=== PATIENT | male | born 1960 | race Caucasian/White ===

== ENCOUNTER → 2016-08-22 | Outpatient (CLI) | payer BC ==
[~2016-08-22] MED LIST: ALAVERT10 MG PO; NKHM PO
[2016-08-22 10:42] LABS: BASO % 0.5 % (0.0-1.0); EOS # 0.1 10*3/uL (0.0-0.4); EOS % 2.1 % (1.0-4.0); HEMATOCRIT 45.7 % (42.0-52.0); HEMOGLOBIN 16.6 g/dl (14.0-18.0); LYMPH # 0.6 10*3/uL (1.3-4.4); LYMPH % 9.4 % (27.0-41.0); MEAN CELL VOLUME 92.9 fl (80.0-94.0); MEAN CORPUSCULAR HGB 33.7 pg (27.0-31.0); MEAN CORPUSCULAR HGB CONC 36.3 g/dl (33.0-37.0); MEAN PLATELET VOLUME 10.7 fl (9.6-12.3); MONO # 0.6 10*3/uL (0.1-1.0); MONO % 9.4 % (3.0-9.0); NEUT # 4.8 10*3/uL (2.3-7.9); NEUT % 78.4 % (47.0-73.0); PLATELET COUNT AUTOMATED 165 10*3/uL (130-400); RED BLOOD COUNT 4.92 10*6/uL (4.50-5.90); RED CELL DISTRI WIDTH 13.7 % (0-14.5); WHITE BLOOD COUNT 6.2 10*3/uL (4.8-10.8)
[2016-08-22 11:06] LABS: ALKALINE PHOSPHATASE 79 U/L (45-117); BILIRUBIN, TOTAL 1.1 mg/dl (0.2-1.0); BUN 17 mg/dl (7-24); CARBON DIOXIDE 30 mmol/L (21-32); CHLORIDE 106 mmol/L (98-107); EST GLOM FILT AFRICAN AMERICAN > 60 ml/min; GLUCOSE 92 mg/dL (65-99); LDH 227 U/L (87-241); POTASSIUM 4.4 mmol/L (3.5-5.1); SGOT/AST 18 IU/L (3-35); SGPT/ALT 27 U/L (12-78); SODIUM 145 mmol/L (136-145); TOTAL PROTEIN 6.8 gm/dL (6.4-8.2)
== END | disposition home or self-care (01) ==
LOC: LAB 10:23
PROVIDERS: Internal Medicine Hematology & Oncology
DX: Z51.11 Encounter for antineoplastic chemotherapy (principal); C82.03 Follicular lymphoma grade I, intra-abdominal lymph nodes; C85.89 Other specified types of non-Hodgkin lymphoma, extranodal and solid organ sites

== ENCOUNTER → 2017-02-14 | Outpatient (CLI) | payer BC ==
[2017-02-14 08:06] LABS: BASO % 0.7 % (0.0-1.0); EOS # 0.2 10*3/uL (0.0-0.4); EOS % 3.5 % (1.0-4.0); HEMATOCRIT 44.8 % (42.0-52.0); HEMOGLOBIN 15.7 g/dl (14.0-18.0); LYMPH # 0.8 10*3/uL (1.3-4.4); LYMPH % 14.2 % (27.0-41.0); MEAN CELL VOLUME 95.9 fl (80.0-94.0); MEAN CORPUSCULAR HGB 33.6 pg (27.0-31.0); MEAN PLATELET VOLUME 10.9 fl (9.6-12.3); MONO # 0.6 10*3/uL (0.1-1.0); MONO % 10.8 % (3.0-9.0); NEUT # 4.1 10*3/uL (2.3-7.9); NEUT % 70.5 % (47.0-73.0); PLATELET COUNT AUTOMATED 131 10*3/uL (130-400); RED BLOOD COUNT 4.67 10*6/uL (4.50-5.90); WHITE BLOOD COUNT 5.8 10*3/uL (4.8-10.8)
[2017-02-14 08:37] LABS: ALBUMIN 3.8 gm/dl (3.1-4.5); ALKALINE PHOSPHATASE 78 U/L (45-117); BUN 15 mg/dl (7-24); CHLORIDE 108 mmol/L (98-107); CREATININE 1.08 mg/dL (0.70-1.30); POTASSIUM 5.1 mmol/L (3.5-5.1); SGOT/AST 24 IU/L (3-35); SGPT/ALT 29 U/L (12-78); SODIUM 142 mmol/L (136-145); TOTAL PROTEIN 6.9 gm/dL (6.4-8.2)
[2017-02-14 08:54] LABS: LDH 282 U/L (87-241)
== END | disposition home or self-care (01) ==
LOC: LAB 07:41
PROVIDERS: Internal Medicine Hematology & Oncology
DX: Z51.11 Encounter for antineoplastic chemotherapy (principal); Z23 Encounter for immunization; C82.03 Follicular lymphoma grade I, intra-abdominal lymph nodes

== ENCOUNTER → 2017-08-03 | Outpatient (CLI) | payer BC ==
[~2017-08-03] MED LIST changes: +Percocet 325 MG1 TAB PO
[2017-08-03 14:07] LABS: BASO # 0.1 10*3/uL (0.0-0.1); EOS # 0.3 10*3/uL (0.0-0.4); EOS % 4.6 % (1.0-4.0); HEMATOCRIT 42.8 % (42.0-52.0); LYMPH # 0.7 10*3/uL (1.3-4.4); MEAN CELL VOLUME 95.1 fl (80.0-94.0); MEAN CORPUSCULAR HGB 33.3 pg (27.0-31.0); MEAN PLATELET VOLUME 11.5 fl (9.6-12.3); MONO # 0.5 10*3/uL (0.1-1.0); MONO % 8.8 % (3.0-9.0); NEUT # 4.3 10*3/uL (2.3-7.9); NEUT % 73.1 % (47.0-73.0); PLATELET COUNT AUTOMATED 138 10*3/uL (130-400); RED CELL DISTRI WIDTH 13.4 % (0-14.5); WHITE BLOOD COUNT 5.9 10*3/uL (4.8-10.8)
[2017-08-03 14:38] LABS: BILIRUBIN, DIRECT 0.2 mg/dL (0.0-0.2); BUN 13 mg/dl (7-24); CHLORIDE 104 mmol/L (98-107); CHOLESTEROL 206 mg/dL (<200); CREATININE 0.86 mg/dL (0.70-1.30); LDH 163 U/L (87-241); POTASSIUM 4.3 mmol/L (3.5-5.1); SGOT/AST 17 IU/L (3-35); SGPT/ALT 30 U/L (12-78); SODIUM 138 mmol/L (136-145); TRIGLYCERIDES 164 mg/dl (<150); VLDL CHOLESTEROL 33 mg/dL (6-40)
[2017-08-03 14:45] LABS: ALKALINE PHOSPHATASE 68 U/L (45-117); HDL CHOLESTEROL 58 mg/dl (40-60); LDL CHOLESTEROL 115 mg/dL (9-159); THYROXINE (T4) TOTAL 7.5 ug/dl (4.5-12.1); TOTAL PROTEIN 6.7 gm/dL (6.4-8.2)
== END | disposition home or self-care (01) ==
LOC: LAB 13:08
PROVIDERS: Family Medicine
DX: Z12.5 Encounter for screening for malignant neoplasm of prostate (principal); M51.36 Other intervertebral disc degeneration, lumbar region; R35.1 Nocturia; C82.90 Follicular lymphoma, unspecified, unspecified site; R94.31 Abnormal electrocardiogram [ECG] [EKG]; R79.89 Other specified abnormal findings of blood chemistry

== ENCOUNTER → 2017-08-07 | Day surgery (SDC) | payer BC ==
[~2017-08-07] VITALS: Ht 187.9 cm; Wt 99.8 kg
--- NOTE | ~2017-08-07 | O ---
[place], [place] OPERATIVE NOTE NAME: JAYDEN MATHEWS UNIT #: [id number] ROOM: DOCTOR: RAMY STRAUSS MD BIRTHDATE: [birth year] DOS: 08/07/2017 GASTRO-ENDOSCOPIC REPORT HISTORY OF PRESENT ILLNESS: This is a 56-year-old patient, who presented with chief complaint of history of colonic polyp, undergoing investigation. ALLERGIES: No medication. FAMILY HISTORY: Noncontributory. PAST MEDICAL HISTORY: Splenic carcinoma 3 years ago, status post chemotherapy. PAST SURGICAL HISTORY: Tonsillectomy, arthroscopy of the ankle. SOCIAL HISTORY: Smoker, alcohol consumer. PROCEDURE: Today's procedure part of investigation is colonoscopy plus polypectomy. PREMEDICATION: Versed and Diprivan. SCOPE: Olympus forward-viewing colonoscope 10L video. REPORT: After putting the patient in left lateral position and application of lubricant to the scope, the scope was introduced; thereafter, under direct visualization, I advanced through the length of colon without difficulty. Diverticulosis coli was appreciated. There sessile polypoid lesion in sigmoid colon. Three at splenic flexure and two at cecal colon with piecemeal polypectomy removed and one polypoid lesion in sigmoid colon with a snare was removed. Air was suctioned out. The patient was extubated, tolerated procedure well. IMPRESSION: Diverticulosis coli and presence of liquid stool throughout the colon and multiple sessile polypoid lesions, status post piecemeal polypectomy x 8 and snare polypectomy x 1. PLAN AND DISCUSSION: High fiber diet to abstain from smoking and alcohol. Follow up as outpatient. This patient is advised to have a followup with you in office routinely and he is advised to not to miss future colonoscopies since he has such a high propensity for development of the new polyps in future. [place], [place] OPERATIVE NOTE NAME: JAYDEN MATHEWS UNIT #: [id number] ROOM: DOCTOR: RAMY STRAUSS MD BIRTHDATE: [birth year] RAMY STRAUSS MD CM:OPRECORD:OPERATIVE NOTE [id number] RAMY STRAUSS MD 08/07/17 1706 interface
[2017-08-07 11:25] VITALS: BP 126/80
[2017-08-07 13:02] VITALS: BP 108/41
[2017-08-07 13:17] VITALS: BP 106/70
[2017-08-07 13:32] VITALS: BP 116/76
== END | disposition home or self-care (01) ==
LOC: SDC 08-03 14:45
DX: Z09 Encounter for follow-up examination after completed treatment for conditions other than malignant neoplasm (principal); Z86.010 Personal history of colon polyps; Z85.89 Personal history of malignant neoplasm of other organs and systems; K63.5 Polyp of colon; D12.3 Benign neoplasm of transverse colon; D12.0 Benign neoplasm of cecum; F17.200 Nicotine dependence, unspecified, uncomplicated; Z79.899 Other long term (current) drug therapy; Z85.72 Personal history of non-Hodgkin lymphomas

== ENCOUNTER 2017-09-13 03:36 | Emergency (ER) | payer BC ==
[~2017-09-13] VITALS: Ht 187.9 cm; Wt 99.8 kg
[2017-09-13 04:17] LABS: BASO # 0.1 10*3/uL (0.0-0.1); BASO % 0.6 % (0.0-1.0); EOS # 0.3 10*3/uL (0.0-0.4); EOS % 2.9 % (1.0-4.0); HEMATOCRIT 46.4 % (42.0-52.0); HEMOGLOBIN 16.2 g/dl (14.0-18.0); LYMPH # 0.8 10*3/uL (1.3-4.4); MEAN CELL VOLUME 97.1 fl (80.0-94.0); MEAN CORPUSCULAR HGB 33.9 pg (27.0-31.0); MEAN CORPUSCULAR HGB CONC 34.9 g/dl (33.0-37.0); MEAN PLATELET VOLUME 11.4 fl (9.6-12.3); MONO # 0.8 10*3/uL (0.1-1.0); MONO % 8.2 % (3.0-9.0); NEUT # 7.6 10*3/uL (2.3-7.9); NEUT % 79.7 % (47.0-73.0); PLATELET COUNT AUTOMATED 154 10*3/uL (130-400); RED BLOOD COUNT 4.78 10*6/uL (4.50-5.90); RED CELL DISTRI WIDTH 13.2 % (0-14.5); WHITE BLOOD COUNT 9.6 10*3/uL (4.8-10.8)
[2017-09-13 04:34] LABS: LIPASE 95 U/L (73-393)
[2017-09-13 04:35] LABS: TROPONIN I < 0.015 ng/ml (<0.045)
[2017-09-13 04:36] LABS: ALBUMIN 4.1 gm/dl (3.1-4.5); ALKALINE PHOSPHATASE 108 U/L (45-117); BUN 17 mg/dl (7-24); CHLORIDE 108 mmol/L (98-107); POTASSIUM 4.4 mmol/L (3.5-5.1); SGOT/AST 13 IU/L (3-35); SGPT/ALT 25 U/L (12-78); SODIUM 141 mmol/L (136-145); TOTAL PROTEIN 7.3 gm/dL (6.4-8.2)
[2017-09-13 04:42] LABS: BILIRUBIN NEGATIVE (NEGATIVE); BLOOD 1+ (NEGATIVE); CLARITY CLEAR (CLEAR); COLOR YELLOW (YELLOW); GLUCOSE NEGATIVE (NEGATIVE); KETONE TRACE (NEGATIVE); LEUKO ESTERASE NEGATIVE (NEGATIVE); NITRITE NEGATIVE (NEGATIVE); PH 5.5 (5.0-9.0); SPECIFIC GRAVITY 1.025 (1.005-1.030); UROBILINOGEN 0.2 E.U./dl (0.2-1.0)
[2017-09-13] MEDS ORDERED: KETOROLAC10 MG PO (05:31)
[2017-09-13] MEDS ORDERED: CYCLOBENZAPRINE10 MG PO (05:31)
== END 2017-09-13 05:36 | disposition home or self-care (01) ==
LOC: ED 03:36
PROVIDERS: Student in an Organized Health Care Education/Training Program
DX: R10.31 Right lower quadrant pain (principal); F17.200 Nicotine dependence, unspecified, uncomplicated

== ENCOUNTER 2017-10-20 15:48 | Inpatient (IN) | payer BC ==
[~2017-10-20] VITALS: Ht 188 cm; Wt 94.6 kg
--- NOTE | ~2017-10-20 | EKG ---
[place], [place] ELECTROCARDIOGRAM REPORT NAME: JAYDEN MATHEWS UNIT #: [id number] ROOM: 402 DOCTOR: CAMILLA DAVISON MD,PAT BIRTHDATE: [birth year] DOS: 10/20/2017 ELECTROCARDIOGRAM TIME: 05:03 p.m. FINDINGS: The electrocardiogram shows normal sinus rhythm, heart rate 62 beats per minute. PAT SAMPSON MD CM:EKGRPT:ELECTROCARDIOGRAM REPORT [id number] PAT DAVISON MD
--- NOTE | ~2017-10-20 | PR ---
[place], [place] PROGRESS NOTE NAME: JAYDEN MATHEWS [id number] UNIT #: [id number] ROOM: 402 DOCTOR: CAMILLA DAVISON MD,PAT BIRTHDATE: [birth year] DOS: 10/22/2017 PULMONARY PROGRESS NOTE SUBJECTIVE: The patient is noted comfortable at this time with complete resolution of pain in the left lower extremity, improvement in the redness and thrombophlebitis symptoms of the left lower extremity as well. The patient remains asymptomatic from a pulmonary standpoint. Denies any coughing, wheezing, shortness of breath, chest pain or other symptoms. The patient does not have any hemoptysis or hematuria. He remains on unfractionated therapeutic heparin. OBJECTIVE: VITAL SIGNS: Normal temperature, respiratory rate 16, heart rate 75, blood pressure 132/80. Pulse oxygen saturation of the patient noted on room air was 97% saturation. HEENT: Shows head was atraumatic, eyes nonicterus. NECK: Supple. CARDIOVASCULAR: S1, S2 audible. LUNGS: The patient was noted without any wheezing or crackles at the present time. ABDOMEN: Soft, nontender. Bowel sounds present. EXTREMITIES: Noted with minimal edema on the patient's left lower extremity at this time, resolution of the area of thrombophlebitis as well. LABORATORY DATA: There were no labs done today. The PTT that was done previously was noted as therapeutic. IMPRESSION: The patient has been currently noted with deep venous thrombosis of left lower extremity with bilateral pulmonary embolism involving the lower lobe pulmonary arterial branches with the possibility of pulmonary infarct. The patient's left lower lobe remains stable. PLAN OF MANAGEMENT: Discontinue heparin for the patient at this point, starting the patient on Eliquis 10 mg b.i.d. dosing starting at 9 o'clock. The patient could be discharged home today and asked to do his usual activity without any exertion, remains off of work at least a couple of weeks prior to resuming his usual duties, which would be quite exertional for the patient as well, requiring a lot of bending and others. 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 He was also advised to be followed up with Dr. Mccann to review the hypercoagulability profile, which was ordered, to review it once available, and also to repeat a CT scan of the chest to document the resolution of all the pulmonary abnormality, especially the left lower lobe, pulmonary infarct and/or mass. 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 The patient understood the instructions very well, written down. He could be continued on the high dose of Eliquis with the loading dose of 10 mg b.i.d. for 7 days followed by 5 mg b.i.d. to be continued. [place], [place] PROGRESS NOTE NAME: JAYDEN MATHEWS UNIT #: [id number] ROOM: [facility] DOCTOR: PAT FUENTES MD BIRTHDATE: [birth year] PAT SAMPSON MD CM:JACE [id number] PAT DAVISON MD 10/22/17 0751 interface
--- NOTE | ~2017-10-20 | CON ---
[place], [place] REPORT OF CONSULTATION NAME: JAYDEN MATHEWS [facility] #: [id number] UNIT #: [id number] ROOM: 402 DOCTOR: PAT FUENTES MD BIRTHDATE: [birth year] DOS: 10/21/2017 REASON FOR CONSULTATION: Assess the patient for pulmonary embolism with possible pulmonary infarct. HISTORY OF PRESENT ILLNESS: A 56-year-old patient who has developed symptoms of acute pain, which are reported in the left calf area. The pain was noted with gradual progression, later noted with a streak of redness appeared on the calf. Later on the pain progressed in the distal portion of the left thigh. The patient got concerned and the patient came to the hospital for further assessment. The swelling of the left lower extremity was noted with gradual increase. The patient was assessed in the Emergency Room for further assessment and management. Ultrasound of the left leg for the patient was noted with evidence of acute deep venous thrombosis of tibioperoneal trunk, popliteal, peroneal and posterior tibial veins. The patient had a CTA of the chest was performed in the Emergency Room that was reported without any pulmonary embolism. The patient has not been noted any symptoms of chest pain with those symptoms. Denies symptoms of coughing, shortness of breath, wheezing or hemoptysis. REVIEW OF SYSTEMS: CONSTITUTIONAL: Fatigue and tiredness reported without any symptoms of fever or chills. EYES: Denies any burning, redness, or tenderness. EARS, NOSE, THROAT SYMPTOMS: Denies sore throat, hoarseness, or otalgia. CARDIOVASCULAR: Denies symptoms of palpitation, dyspnea upon exertion, orthopnea, palpitations. GASTROINTESTINAL: No dysphagia, nausea, vomiting, diarrhea, abdominal pain, hematemesis, melena, hematochezia, or any abnormal weight loss history. Denies symptoms of dysphagia. GENITOURINARY: No dysuria, suprapubic pain, hematuria. MUSCULOSKELETAL: No acute joint pain, redness, or tenderness. SKIN: Denies any lesions or rashes. CENTRAL NERVOUS SYSTEM: Denies diplopia, syncopal episodes or tingling sensation of the extremities. Remaining systems were reviewed. They were noted all negative. PAST MEDICAL HISTORY: Reported with history of follicular lymphoma for the patient that has been diagnosed with the patient with the biopsy and treated with initially chemotherapy for 6 months and then maintenance chemotherapy for another 18 months. The patient stated treatment was completed under the care of Dr. Mccann in [place], [place] in approximately 2011. PAST SURGICAL HISTORY: 1. Noted with surgery for the testicle. 2. T and A. 3. Lymph node biopsy for the patient as well. SOCIAL HISTORY: The patient noted with history of tobacco use, started earlier, [place], [place] REPORT OF CONSULTATION NAME: JAYDEN MATHEWS UNIT #: [id number] ROOM: [facility] DOCTOR: PAT FUENTES MD BIRTHDATE: [birth year] about a pack of cigarettes per day that was discontinued in 2009 and then he smokes about a cigar daily. He also drinks about 3 beers a day. 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 FAMILY HISTORY: The patient's mother is 85 years old, living without known medical illnesses. The father for complication of Alzheimer's at the age of 80+ years. HOME MEDICATIONS: Noted with no regular use of any medications. DRUG ALLERGIES: Noted as none. PHYSICAL EXAMINATION: GENERAL: This is 56-year-old white male patient, well-developed and well nourished, currently sitting on bed without any distress. Height of 6 feet 2 inches, weight 208 pounds, BMI 26.8. VITAL SIGNS: The patient noted normal temperature since hospitalization, respiratory rate 18-16, heart rate of 60-68, blood pressure 105/74-147/88. Intake for the patient was 440, output 2700 mL. Pulse oxygen saturation of the patient room air 97% saturation. HEENT: Head was atraumatic. Eyes: No icterus. NECK: Supple. CARDIOVASCULAR: S1, S2 audible. LUNGS: The patient was noted without any wheezing or crackles on my examination. Auscultation noted clear. ABDOMEN: Soft, nontender. EXTREMITIES: The patient shows mild edema of the left lower extremity with a little bit of redness noted in the calf area medially. Right lower extremity examination noted as normal. VISIBLE SKIN: No lesions or rashes. CENTRAL NERVOUS SYSTEM: Cranial nerves 2-12 intact. MUSCULOSKELETAL: Without any deformities. LABORATORY DATA: BMP of patient that was done just noted as normal. CBC that was done yesterday, on 10/20/2017 was noted as normal. PT and PTT noted as normal. The PTT, which was done yesterday noted 81.2 as the patient is getting intravenous heparin. CBC this morning, the patient remains normal except 4.6% eosinophils. PT, PTT, INR normal. PTT 71. CMP of the patient 10/21/2017 was noted normal BUN and creatinine. Total protein of 6.2. The ultrasound of the lower extremity was done that was noted with finding of left tibioperoneal trunk ____ which are noted acute as well as ____ peroneal as well as posterior tibial veins. CTA of the chest for this patient was done on this admission as well. CTA of the chest that was completed yesterday in the Emergency Room on 10/20/2017 was personally reviewed shows small right-sided pleural fluid was noted. Evidence of multiple pulmonary embolism for this patient was noted with filling defect, complete and incomplete mostly involving the right and left lower lobe pulmonary artery branches. The burden of the clot for the patient noted more on the right than the left lower pulmonary arteries. There was no evidence of a saddle embolus. Pleural based triangular density noted highly consistent with findings of pulmonary infarct. There was no lymphadenopathy [place], [place] REPORT OF CONSULTATION NAME: JAYDEN MATHEWS UNIT #: [id number] ROOM: 402 DOCTOR: CAMILLA DAVISON MDPAT BIRTHDATE: [birth year] noted. Nonspecific low density described 1.4 cm most likely cyst in the left lobe of the liver by the radiologist as well. IMPRESSION: 1. The patient who has been admitted to the hospital for acute deep venous thrombosis involving the left lower extremity. The patient was also noted with evidence of bilateral pulmonary embolism, moderate ____ in the lower lobe pulmonary arterial branches as well as a pulmonary infarction and small right pleural effusion as well. All the finding of the patient on the CT scan of the chest was noted, most likely related to acute pulmonary embolism. The consequences resulting in pulmonary infarct and the very small pleural fluid formation on the right side. However, the patient should have a repeat CT scan of the chest to be done to make sure all the abnormalities resolve, especially in the left lower lobe to exclude any malignancy, other abnormalities after 6 weeks from the current treatment. 2. The patient with history of follicular lymphoma which has been reported in remission and being monitored by the medical oncologist. The patient's follicular lymphoma has been treated in 2011. 3. Low grade tobacco use in the form of cigar. The patient noted with past history of tobacco use as well. PLAN OF MANAGEMENT: The symptomatic management of thrombophlebitis was continued with a heating pad. The patient has been currently getting unfractionated therapeutic heparin to maintain a PTT therapeutic range with that. The current anticoagulation will be continued for the next 24 hours without any other changes. The pain and the swelling seemed to be decreased with current use of heparin agent as well. Pleural fluid will be monitored with the followup chest x-ray to be done tomorrow morning as well. Hypercoagulable profile was ordered as well. 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 The patient is planning a trip for this patient in 01/2018 [place] at this time. As long as the patient remains on anticoagulation, it would be safe to travel at that time. He was also encouraged to make an appointment with his medical oncologist to get his opinion about that to exclude any other malignant process in the body or recurrence of lymphoma. So far, there has not been any evidence of that. The lymphoma of the patient was diagnosed involving the spleen and with the treatment, which was provided, the spleen was noted as normal size as per patient. The symptomatic management otherwise will be continued without any changes. Usual treatment, other supportive plan of therapy and care plan and management. The nodule reported in the left lobe of the liver was described most likely a cyst. Other supportive plan of management and care. Ambulation could be started as tolerated. He does not require any venous stocking at the present time. He does not require any other intervention such as an IVC filter insertion. Work restriction to be placed for this patient at least about 3-4 weeks until resolution of deep venous thrombosis, asymptomatic. To resume his usual duties that may require squatting, sitting that could further exacerbates the patient's problem as deep venous thrombosis. Other supportive plan of management as well. Thanks for allowing me to participate in the care of this patient. [place], [place] REPORT OF CONSULTATION NAME: REIDCARPENTER Josh UNIT #: [id number] ROOM: 402 DOCTOR: [facility]ILL[facility]ISON [facility] BIRTH[facility]: [birth year] PAT SAMPSON MD CM:CONSTR:REPORT OF CONSULTATION 1222 10/21/17 1442 interface
[~2017-10-20 15:48] MED LIST changes: +CYCLOBENZAPRINE10 MG PO; +KETOROLAC10 MG PO
[2017-10-20 15:53] VITALS: BP 133/86
[2017-10-20 16:12] LABS: BASO # 0.1 10*3/uL (0.0-0.1); BASO % 0.7 % (0.0-1.0); EOS # 0.4 10*3/uL (0.0-0.4); EOS % 5.1 % (1.0-4.0); HEMATOCRIT 42.7 % (42.0-52.0); HEMOGLOBIN 14.7 g/dl (14.0-18.0); LYMPH # 0.7 10*3/uL (1.3-4.4); LYMPH % 9.9 % (27.0-41.0); MEAN CELL VOLUME 97.5 fl (80.0-94.0); MEAN CORPUSCULAR HGB 33.6 pg (27.0-31.0); MEAN CORPUSCULAR HGB CONC 34.4 g/dl (33.0-37.0); MEAN PLATELET VOLUME 10.5 fl (9.6-12.3); MONO # 0.6 10*3/uL (0.1-1.0); MONO % 8.3 % (3.0-9.0); NEUT # 5.4 10*3/uL (2.3-7.9); NEUT % 75.9 % (47.0-73.0); PLATELET COUNT AUTOMATED 145 10*3/uL (130-400); RED BLOOD COUNT 4.38 10*6/uL (4.50-5.90); RED CELL DISTRI WIDTH 13.6 % (0-14.5); WHITE BLOOD COUNT 7.1 10*3/uL (4.8-10.8)
[2017-10-20 16:23] LABS: ACT PARTIAL THROMBO TIME 26.8 SECONDS (20.8-31.5)
[2017-10-20 16:25] LABS: BUN 21 mg/dl (7-24); CHLORIDE 104 mmol/L (98-107); CREATININE 0.92 mg/dL (0.70-1.30); POTASSIUM 4.1 mmol/L (3.5-5.1); SODIUM 139 mmol/L (136-145)
[2017-10-20] MEDS ORDERED: XARELTO1 EACH PO (16:37)
[2017-10-20 18:06] VITALS: BP 147/77; BP 147/88
[2017-10-20 20:00] VITALS: BP 124/75
[2017-10-21] VITALS: BP 105/74
[2017-10-21 06:04] LABS: BASO # 0.1 10*3/uL (0.0-0.1); EOS # 0.3 10*3/uL (0.0-0.4); EOS % 4.6 % (1.0-4.0); HEMATOCRIT 42.3 % (42.0-52.0); HEMOGLOBIN 14.6 g/dl (14.0-18.0); LYMPH # 0.7 10*3/uL (1.3-4.4); LYMPH % 11.7 % (27.0-41.0); MEAN CELL VOLUME 96.8 fl (80.0-94.0); MEAN CORPUSCULAR HGB 33.4 pg (27.0-31.0); MEAN CORPUSCULAR HGB CONC 34.5 g/dl (33.0-37.0); MEAN PLATELET VOLUME 11.3 fl (9.6-12.3); MONO # 0.5 10*3/uL (0.1-1.0); MONO % 8.8 % (3.0-9.0); NEUT # 4.3 10*3/uL (2.3-7.9); NEUT % 73.7 % (47.0-73.0); PLATELET COUNT AUTOMATED 143 10*3/uL (130-400); RED BLOOD COUNT 4.37 10*6/uL (4.50-5.90); RED CELL DISTRI WIDTH 13.4 % (0-14.5); WHITE BLOOD COUNT 5.8 10*3/uL (4.8-10.8)
[2017-10-21 06:37] LABS: ALBUMIN 3.3 gm/dl (3.1-4.5); BUN 14 mg/dl (7-24); CHLORIDE 108 mmol/L (98-107); CREATININE 0.76 mg/dL (0.70-1.30); POTASSIUM 4.1 mmol/L (3.5-5.1); SGOT/AST 15 IU/L (3-35); SGPT/ALT 21 U/L (12-78); SODIUM 143 mmol/L (136-145); TRIGLYCERIDES 98 mg/dl (<150); VLDL CHOLESTEROL 20 mg/dL (6-40)
[2017-10-21 06:47] LABS: ALKALINE PHOSPHATASE 73 U/L (45-117); CHOLESTEROL 150 mg/dL (<200); FREE T4 0.96 ng/dl (0.76-1.46); HDL CHOLESTEROL 50 mg/dl (40-60); LDL CHOLESTEROL 80 mg/dL (9-159); TOTAL PROTEIN 6.2 gm/dL (6.4-8.2)
[2017-10-21 07:22] LABS: VITAMIN D, 25-HYDROXY 23.6 ng/mL (30-100)
[2017-10-21 08:00] VITALS: BP 114/72
[2017-10-21 12:00] VITALS: BP 101/63
[2017-10-21 16:00] VITALS: BP 109/72
[2017-10-21 20:00] VITALS: BP 132/78
[2017-10-22] VITALS: BP 133/80
[2017-10-22 08:00] VITALS: BP 111/83
[2017-10-22 12:00] VITALS: BP 115/73
[2017-10-22] MEDS ORDERED: VITAMIN D31000 UNIT PO (13:20)
[2017-10-22] MEDS ORDERED: ELIQUIS5 M1 PO ×2 (14:48)
[2017-10-23 14:06] LABS: ANTICARDIOLIPIN AB, IGG, QN <9 GPL U/mL (0-14); ANTICARDIOLIPIN AB, IGM, QN <9 MPL U/mL (0-12); CARDIOLIPIN AB IGA 161836 <9 APL U/mL (0-11)
[2017-10-24 00:03] LABS: ANTI-THROMBIN III ACTIVITY 97 % (75-135); PROTEIN S, FREE 112 % (57-157); PROTEIN S, TOTAL 91 % (60-150)
[2017-10-24 14:05] LABS: LUPUS DRVVT 42.4 sec (0.0-47.0); PTT-LA 39.6 sec (0.0-51.9)
[2017-10-24 15:07] LABS: LUPUS REFLEX INTERPRETATION Comment: (.)
== END 2017-10-22 15:35 | disposition home or self-care (01) | DRG 299 ==
LOC: ED 15:48 → 4E 16:59 → EDHOLD 16:59 → 4E 17:23
PROVIDERS: Emergency Medicine; Internal Medicine; Internal Medicine Critical Care Medicine
DX: I82.432 Acute embolism and thrombosis of left popliteal vein (principal); I26.99 Other pulmonary embolism without acute cor pulmonale; C82.90 Follicular lymphoma, unspecified, unspecified site; E44.1 Mild protein-calorie malnutrition; E87.8 Other disorders of electrolyte and fluid balance, not elsewhere classified; I82.442 Acute embolism and thrombosis of left tibial vein; F17.298 Nicotine dependence, other tobacco product, with other nicotine-induced disorders; E55.9 Vitamin D deficiency, unspecified; D75.89 Other specified diseases of blood and blood-forming organs; Z71.6 Tobacco abuse counseling; Z82.49 Family history of ischemic heart disease and other diseases of the circulatory system; Z82.0 Family history of epilepsy and other diseases of the nervous system; Z68.26 Body mass index [BMI] 26.0-26.9, adult

== ENCOUNTER → 2018-03-05 | Outpatient (CLI) | payer BC ==
[~2018-03-05] MED LIST changes: +ELIQUIS5 M1 PO; +VITAMIN D31000 UNIT PO; +XARELTO1 EACH PO
[2018-03-05 10:46] LABS: BASO # 0.1 10*3/uL (0.0-0.1); BASO % 0.7 % (0.0-1.0); EOS # 0.2 10*3/uL (0.0-0.4); EOS % 2.3 % (1.0-4.0); HEMATOCRIT 47.6 % (42.0-52.0); HEMOGLOBIN 17.1 g/dl (14.0-18.0); LYMPH # 0.7 10*3/uL (1.3-4.4); LYMPH % 8.7 % (27.0-41.0); MEAN CELL VOLUME 96.6 fl (80.0-94.0); MEAN CORPUSCULAR HGB 34.7 pg (27.0-31.0); MEAN CORPUSCULAR HGB CONC 35.9 g/dl (33.0-37.0); MEAN PLATELET VOLUME 11.1 fl (9.6-12.3); MONO # 0.7 10*3/uL (0.1-1.0); MONO % 7.9 % (3.0-9.0); NEUT # 6.6 10*3/uL (2.3-7.9); NEUT % 80.2 % (47.0-73.0); PLATELET COUNT AUTOMATED 135 10*3/uL (130-400); RED BLOOD COUNT 4.93 10*6/uL (4.50-5.90); RED CELL DISTRI WIDTH 12.7 % (0-14.5); WHITE BLOOD COUNT 8.3 10*3/uL (4.8-10.8)
[2018-03-05 11:19] LABS: ALKALINE PHOSPHATASE 71 U/L (45-117); BUN 13 mg/dl (7-24); CHLORIDE 104 mmol/L (98-107); CREATININE 0.89 mg/dL (0.70-1.30); LDH 134 U/L (87-241); POTASSIUM 4.2 mmol/L (3.5-5.1); SGOT/AST 15 IU/L (3-35); SGPT/ALT 25 U/L (12-78); SODIUM 138 mmol/L (136-145); TOTAL PROTEIN 6.8 gm/dL (6.4-8.2)
== END | disposition home or self-care (01) ==
LOC: LAB 10:29
PROVIDERS: Internal Medicine Hematology & Oncology
DX: Z51.11 Encounter for antineoplastic chemotherapy (principal); Z23 Encounter for immunization; C82.03 Follicular lymphoma grade I, intra-abdominal lymph nodes; C83.80 Other non-follicular lymphoma, unspecified site

== ENCOUNTER → 2018-05-21 | Outpatient (CLI) | payer BC ==
[~2018-05-21] MED LIST changes: +ELIQUIS5 M2 PO
[2018-05-21 10:50] LABS: BASO # 0.1 10*3/uL (0.0-0.1); BASO % 0.6 % (0.0-1.0); EOS # 0.2 10*3/uL (0.0-0.4); EOS % 2.3 % (1.0-4.0); HEMATOCRIT 45.5 % (42.0-52.0); HEMOGLOBIN 15.8 g/dl (14.0-18.0); LYMPH # 0.7 10*3/uL (1.3-4.4); LYMPH % 7.3 % (27.0-41.0); MEAN CELL VOLUME 99.6 fl (80.0-94.0); MEAN CORPUSCULAR HGB 34.6 pg (27.0-31.0); MEAN CORPUSCULAR HGB CONC 34.7 g/dl (33.0-37.0); MONO # 0.6 10*3/uL (0.1-1.0); MONO % 6.2 % (3.0-9.0); NEUT # 8.1 10*3/uL (2.3-7.9); NEUT % 83.3 % (47.0-73.0); PLATELET COUNT AUTOMATED 148 10*3/uL (130-400); RED BLOOD COUNT 4.57 10*6/uL (4.50-5.90); RED CELL DISTRI WIDTH 12.6 % (0-14.5); WHITE BLOOD COUNT 9.8 10*3/uL (4.8-10.8)
[2018-05-21 11:14] LABS: ALBUMIN 3.7 gm/dl (3.1-4.5); ALKALINE PHOSPHATASE 81 U/L (45-117); BUN 16 mg/dl (7-24); CHLORIDE 105 mmol/L (98-107); CREATININE 0.84 mg/dL (0.70-1.30); LDH 147 U/L (87-241); POTASSIUM 3.9 mmol/L (3.5-5.1); SGOT/AST 13 IU/L (3-35); SGPT/ALT 24 U/L (12-78); SODIUM 137 mmol/L (136-145); TOTAL PROTEIN 6.8 gm/dL (6.4-8.2)
== END | disposition home or self-care (01) ==
LOC: LAB 10:07
PROVIDERS: Internal Medicine Hematology & Oncology
DX: Z23 Encounter for immunization (principal); C82.03 Follicular lymphoma grade I, intra-abdominal lymph nodes; I26.99 Other pulmonary embolism without acute cor pulmonale

== ENCOUNTER → 2019-11-11 | Outpatient (CLI) | payer BC ==
[2019-11-11 14:03] LABS: BASO # 0.1 10*3/uL (0.0-0.1); BASO % 0.7 % (0.0-1.0); EOS # 0.2 10*3/uL (0.0-0.4); EOS % 2.6 % (1.0-4.0); LYMPH # 0.9 10*3/uL (1.3-4.4); LYMPH % 9.3 % (27.0-41.0); MEAN CELL VOLUME 99.8 fl (80.0-94.0); MEAN CORPUSCULAR HGB 34.4 pg (27.0-31.0); MEAN CORPUSCULAR HGB CONC 34.5 g/dl (33.0-37.0); MONO # 0.7 10*3/uL (0.1-1.0); MONO % 7.7 % (3.0-9.0); NEUT # 7.2 10*3/uL (2.3-7.9); NEUT % 78.1 % (47.0-73.0); PLATELET COUNT AUTOMATED 162 10*3/uL (130-400); RED BLOOD COUNT 4.91 10*6/uL (4.50-5.90); WHITE BLOOD COUNT 9.2 10*3/uL (4.8-10.8)
[2019-11-11 14:21] LABS: ALBUMIN 3.7 gm/dl (3.1-4.5); ALKALINE PHOSPHATASE 91 U/L (45-117); BUN 11 mg/dl (7-24); CHLORIDE 106 mmol/L (98-107); CREATININE 1.13 mg/dL (0.70-1.30); LDH 174 U/L (87-241); POTASSIUM 3.6 mmol/L (3.5-5.1); SGOT/AST 16 IU/L (3-35); SGPT/ALT 26 U/L (12-78); SODIUM 140 mmol/L (136-145); TOTAL PROTEIN 6.9 gm/dL (6.4-8.2)
== END | disposition home or self-care (01) ==
LOC: LAB 12:49
PROVIDERS: Internal Medicine Hematology & Oncology
DX: I82.409 Acute embolism and thrombosis of unspecified deep veins of unspecified lower extremity (principal); I26.99 Other pulmonary embolism without acute cor pulmonale; C82.03 Follicular lymphoma grade I, intra-abdominal lymph nodes; D68.51 Activated protein C resistance; Z23 Encounter for immunization

== ENCOUNTER 2019-12-11 09:39 | Emergency (ER) | payer BC ==
[~2019-12-11] VITALS: Ht 187.9 cm; Wt 90.7 kg
[2019-12-11] MEDS ORDERED: CYCLOBENZAPRINE10 MG PO (11:16)
[2019-12-11] MEDS ORDERED: NORCO 5-325 TA1 EACH PO (11:16)
== END 2019-12-11 11:29 | disposition home or self-care (01) ==
LOC: ED 09:39
DX: S46.912A Strain of unspecified muscle, fascia and tendon at shoulder and upper arm level, left arm, initial encounter (principal); F17.210 Nicotine dependence, cigarettes, uncomplicated; X58.XXXA Exposure to other specified factors, initial encounter; Y93.89 Activity, other specified; Y92.89 Other specified places as the place of occurrence of the external cause; Y99.8 Other external cause status

== ENCOUNTER → 2020-11-15 | Outpatient (CLI) | payer BC ==
[~2020-11-15] MED LIST changes: +ATORVASTATIN CA40 M1 PO; +CIALIS20 MG PO; +METOPROLOL SUCC25 M2 PO; +NORCO 5-325 TA1 EACH PO; +SOMA350 MG PO; +VITAMIN D3125 MCG PO
[2020-11-15 16:07] LABS: BASO # 0.1 10*3/uL (0.0-0.1); BASO % 0.8 % (0.0-1.0); EOS # 0.3 10*3/uL (0.0-0.4); EOS % 4.7 % (1.0-4.0); LYMPH # 0.9 10*3/uL (1.3-4.4); LYMPH % 14.2 % (27.0-41.0); MEAN CELL VOLUME 97.8 fl (80.0-94.0); MEAN CORPUSCULAR HGB 34.4 pg (27.0-31.0); MEAN CORPUSCULAR HGB CONC 35.2 g/dl (33.0-37.0); MEAN PLATELET VOLUME 10.8 fl (9.6-12.3); MONO # 0.6 10*3/uL (0.1-1.0); MONO % 10.5 % (3.0-9.0); NEUT # 4.3 10*3/uL (2.3-7.9); NEUT % 69.5 % (47.0-73.0); PLATELET COUNT AUTOMATED 132 10*3/uL (130-400); RED CELL DISTRI WIDTH 12.3 % (0-14.5); WHITE BLOOD COUNT 6.1 10*3/uL (4.8-10.8)
[2020-11-15 16:26] LABS: ALBUMIN 3.7 gm/dl (3.1-4.5); ALKALINE PHOSPHATASE 86 U/L (45-117); BUN 20 mg/dl (7-24); CHLORIDE 105 mmol/L (98-107); CREATININE 0.95 mg/dL (0.70-1.30); POTASSIUM 4.1 mmol/L (3.5-5.1); SGOT/AST 17 IU/L (3-35); SGPT/ALT 33 U/L (12-78); SODIUM 138 mmol/L (136-145); TOTAL PROTEIN 6.6 gm/dL (6.4-8.2)
== END | disposition home or self-care (01) ==
LOC: LAB 15:27
PROVIDERS: ATTEND Internal Medicine Hematology & Oncology
DX: I82.4Z9 Acute embolism and thrombosis of unspecified deep veins of unspecified distal lower extremity (principal); C82.03 Follicular lymphoma grade I, intra-abdominal lymph nodes; I26.99 Other pulmonary embolism without acute cor pulmonale; D68.51 Activated protein C resistance; Z23 Encounter for immunization

== ENCOUNTER → 2021-02-13 | Outpatient (CLI) | payer BC | END | disposition home or self-care (01) | LOC: COVID19 18:05 | PROVIDERS: ATTEND Internal Medicine | DX: Z11.52 Encounter for screening for COVID-19 (principal) ==

== ENCOUNTER → 2021-04-04 | Outpatient (CLI) | payer BC | END | disposition home or self-care (01) | LOC: US 09:00 | PROVIDERS: ATTEND Internal Medicine | DX: R60.9 Edema, unspecified (principal); Z86.718 Personal history of other venous thrombosis and embolism ==

== ENCOUNTER → 2021-05-24 | Outpatient (CLI) | payer BC ==
[2021-05-24 09:27] LABS: BASO % 0.5 % (0.0-1.0); EOS # 0.2 10*3/uL (0.0-0.4); EOS % 2.3 % (1.0-4.0); HEMATOCRIT 44.7 % (42.0-52.0); LYMPH # 0.6 10*3/uL (1.3-4.4); LYMPH % 7.7 % (27.0-41.0); MEAN CELL VOLUME 100.2 fl (80.0-94.0); MEAN CORPUSCULAR HGB 34.3 pg (27.0-31.0); MEAN CORPUSCULAR HGB CONC 34.2 g/dl (33.0-37.0); MEAN PLATELET VOLUME 10.9 fl (9.6-12.3); MONO # 0.5 10*3/uL (0.1-1.0); MONO % 6.1 % (3.0-9.0); NEUT # 6.4 10*3/uL (2.3-7.9); PLATELET COUNT AUTOMATED 136 10*3/uL (130-400); RED BLOOD COUNT 4.46 10*6/uL (4.50-5.90); RED CELL DISTRI WIDTH 12.8 % (0-14.5); WHITE BLOOD COUNT 7.7 10*3/uL (4.8-10.8)
[2021-05-24 10:04] LABS: ALBUMIN 3.8 gm/dl (3.1-4.5); BUN 6 mg/dl (7-24); CHLORIDE 106 mmol/L (98-107); CREATININE 0.86 mg/dL (0.70-1.30); POTASSIUM 4.5 mmol/L (3.5-5.1); SGOT/AST 19 IU/L (3-35); SGPT/ALT 30 U/L (12-78); SODIUM 138 mmol/L (136-145); TOTAL PROTEIN 6.8 gm/dL (6.4-8.2)
[2021-05-24 10:07] LABS: ALKALINE PHOSPHATASE 78 U/L (45-117)
== END ==
LOC: LAB 08:18
PROVIDERS: ATTEND Internal Medicine Hematology & Oncology
DX: C82.03 Follicular lymphoma grade I, intra-abdominal lymph nodes (principal); Z23 Encounter for immunization; I26.99 Other pulmonary embolism without acute cor pulmonale; I82.4Z9 Acute embolism and thrombosis of unspecified deep veins of unspecified distal lower extremity; D68.51 Activated protein C resistance

== ENCOUNTER → 2021-11-26 | Outpatient (CLI) | payer BC ==
[2021-11-26 17:22] LABS: BASO # 0.1 10*3/uL (0.0-0.1); BASO % 0.7 % (0.0-1.0); EOS # 0.4 10*3/uL (0.0-0.4); EOS % 5.6 % (1.0-4.0); HEMATOCRIT 46.9 % (42.0-52.0); LYMPH # 1.1 10*3/uL (1.3-4.4); MEAN CORPUSCULAR HGB 34.5 pg (27.0-31.0); MEAN CORPUSCULAR HGB CONC 34.5 g/dl (33.0-37.0); MEAN PLATELET VOLUME 10.9 fl (9.6-12.3); MONO # 0.7 10*3/uL (0.1-1.0); NEUT # 4.7 10*3/uL (2.3-7.9); NEUT % 67.4 % (47.0-73.0); PLATELET COUNT AUTOMATED 150 10*3/uL (130-400); RED BLOOD COUNT 4.69 10*6/uL (4.50-5.90); RED CELL DISTRI WIDTH 12.5 % (0-14.5); WHITE BLOOD COUNT 6.9 10*3/uL (4.8-10.8)
[2021-11-26 17:57] LABS: BUN 14 mg/dl (7-24); CHLORIDE 107 mmol/L (98-107); CREATININE 0.86 mg/dL (0.70-1.30); LDH 144 U/L (87-241); POTASSIUM 4.2 mmol/L (3.5-5.1); SGOT/AST 19 IU/L (3-35); SGPT/ALT 27 U/L (12-78); SODIUM 140 mmol/L (136-145); TOTAL PROTEIN 6.7 gm/dL (6.4-8.2)
[2021-11-26 17:58] LABS: ALKALINE PHOSPHATASE 73 U/L (45-117)
== END | disposition home or self-care (01) ==
LOC: LAB 16:53
PROVIDERS: ATTEND Internal Medicine Hematology & Oncology
DX: Z23 Encounter for immunization (principal); I26.99 Other pulmonary embolism without acute cor pulmonale; I82.4Z9 Acute embolism and thrombosis of unspecified deep veins of unspecified distal lower extremity; D68.51 Activated protein C resistance; C82.03 Follicular lymphoma grade I, intra-abdominal lymph nodes

== ENCOUNTER 2022-03-10 02:59 | Observation (INO) | payer BC ==
[~2022-03-10] VITALS: Ht 187.9 cm; Wt 89.8 kg
[2022-03-10 03:12] VITALS: BP 107/59
[2022-03-10 04:15] LABS: BASO % 0.6 % (0.0-1.0); EOS # 0.4 10*3/uL (0.0-0.4); EOS % 5.6 % (1.0-4.0); HEMATOCRIT 47.4 % (42.0-52.0); LYMPH # 0.6 10*3/uL (1.3-4.4); LYMPH % 8.6 % (27.0-41.0); MEAN CELL VOLUME 99.2 fl (80.0-94.0); MEAN CORPUSCULAR HGB 34.5 pg (27.0-31.0); MEAN CORPUSCULAR HGB CONC 34.8 g/dl (33.0-37.0); MEAN PLATELET VOLUME 10.9 fl (9.6-12.3); MONO # 0.6 10*3/uL (0.1-1.0); MONO % 9.5 % (3.0-9.0); NEUT % 75.4 % (47.0-73.0); PLATELET COUNT AUTOMATED 111 10*3/uL (130-400); RED BLOOD COUNT 4.78 10*6/uL (4.50-5.90); RED CELL DISTRI WIDTH 12.3 % (0-14.5); WHITE BLOOD COUNT 6.7 10*3/uL (4.8-10.8)
[2022-03-10 04:24] LABS: ACT PARTIAL THROMBO TIME 37.9 SECONDS (20.0-32.1); INTERNATIONAL NORM RATIO 1.1 (2.0-3.5)
[2022-03-10 04:29] LABS: ALKALINE PHOSPHATASE 80 U/L (45-117); BUN 13 mg/dl (7-24); CHLORIDE 108 mmol/L (98-107); CREATININE 0.89 mg/dL (0.70-1.30); SGOT/AST 16 IU/L (3-35); SGPT/ALT 29 U/L (12-78); SODIUM 139 mmol/L (136-145); TOTAL PROTEIN 6.1 gm/dL (6.4-8.2)
[2022-03-10 08:00] VITALS: BP 97/64
[2022-03-10 08:06] VITALS: BP 136/61
[2022-03-10 08:46] VITALS: BP 96/66
[2022-03-10 11:08] VITALS: BP 109/74
[2022-03-10] MEDS ORDERED: ASPIRIN ADULT L81 M2 PO (16:30)
[2022-03-10] MEDS ORDERED: XARE20MG PO (16:30)
== END 2022-03-10 17:43 | disposition home or self-care (01) ==
LOC: ED 02:59 → EDHOLD 07:13
PROVIDERS: Emergency Medicine; ADMIT Internal Medicine; ATTEND Internal Medicine
DX: I48.0 Paroxysmal atrial fibrillation (principal); E66.3 Overweight; M19.90 Unspecified osteoarthritis, unspecified site; R07.89 Other chest pain; E87.8 Other disorders of electrolyte and fluid balance, not elsewhere classified; E44.0 Moderate protein-calorie malnutrition; D68.51 Activated protein C resistance; I73.9 Peripheral vascular disease, unspecified; F17.210 Nicotine dependence, cigarettes, uncomplicated; Z68.26 Body mass index [BMI] 26.0-26.9, adult; Z79.899 Other long term (current) drug therapy; Z86.711 Personal history of pulmonary embolism; Z98.890 Other specified postprocedural states; Z90.89 Acquired absence of other organs

== ENCOUNTER → 2022-05-08 | Outpatient (CLI) | payer BC ==
[~2022-05-08] MED LIST changes: +ASPIRIN ADULT L81 M2 PO; +XARE20MG PO
[2022-05-08 16:30] LABS: BASO # 0.1 10*3/uL (0.0-0.1); BASO % 0.8 % (0.0-1.0); EOS # 0.3 10*3/uL (0.0-0.4); EOS % 4.4 % (1.0-4.0); HEMATOCRIT 44.5 % (42.0-52.0); LYMPH % 13.9 % (27.0-41.0); MEAN CELL VOLUME 100.9 fl (80.0-94.0); MEAN CORPUSCULAR HGB 34.5 pg (27.0-31.0); MEAN CORPUSCULAR HGB CONC 34.2 g/dl (33.0-37.0); MEAN PLATELET VOLUME 10.9 fl (9.6-12.3); MONO # 0.7 10*3/uL (0.1-1.0); NEUT # 5.3 10*3/uL (2.3-7.9); NEUT % 71.4 % (47.0-73.0); PLATELET COUNT AUTOMATED 143 10*3/uL (130-400); RED BLOOD COUNT 4.41 10*6/uL (4.50-5.90); RED CELL DISTRI WIDTH 12.8 % (0-14.5); WHITE BLOOD COUNT 7.5 10*3/uL (4.8-10.8)
[2022-05-08 16:41] LABS: ACT PARTIAL THROMBO TIME 30.6 SECONDS (20.0-32.1)
[2022-05-08 16:51] LABS: BUN 16 mg/dl (9-23); CHLORIDE 104 mmol/L (98-107); POTASSIUM 4.8 mmol/L (3.4-5.1)
== END | disposition home or self-care (01) ==
LOC: LAB 16:13
PROVIDERS: ATTEND Surgery Vascular Surgery
DX: Z01.818 Encounter for other preprocedural examination (principal); I49.3 Ventricular premature depolarization; I45.10 Unspecified right bundle-branch block; I73.9 Peripheral vascular disease, unspecified

== ENCOUNTER → 2022-06-05 | Outpatient (CLI) | payer BC ==
[2022-06-05 12:50] LABS: BASO % 0.4 % (0.0-1.0); EOS # 0.1 10*3/uL (0.0-0.4); EOS % 1.5 % (1.0-4.0); HEMATOCRIT 44.2 % (42.0-52.0); LYMPH # 0.7 10*3/uL (1.3-4.4); LYMPH % 10.2 % (27.0-41.0); MEAN CELL VOLUME 96.5 fl (80.0-94.0); MEAN CORPUSCULAR HGB 33.2 pg (27.0-31.0); MEAN CORPUSCULAR HGB CONC 34.4 g/dl (33.0-37.0); MEAN PLATELET VOLUME 10.6 fl (9.6-12.3); MONO # 0.5 10*3/uL (0.1-1.0); MONO % 6.4 % (3.0-9.0); NEUT # 5.9 10*3/uL (2.3-7.9); NEUT % 81.2 % (47.0-73.0); PLATELET COUNT AUTOMATED 162 10*3/uL (130-400); RED BLOOD COUNT 4.58 10*6/uL (4.50-5.90); RED CELL DISTRI WIDTH 12.1 % (0-14.5); WHITE BLOOD COUNT 7.2 10*3/uL (4.8-10.8)
[2022-06-05 13:10] LABS: ALKALINE PHOSPHATASE 79 U/L (46-116); BUN 7 mg/dl (9-23); CHLORIDE 104 mmol/L (98-107); LDH 152 U/L (120-246); POTASSIUM 4.5 mmol/L (3.4-5.1); SGPT/ALT 20 U/L (10-49); TOTAL PROTEIN 6.3 gm/dL (6.0-8.0)
== END | disposition home or self-care (01) ==
LOC: LAB 12:30
PROVIDERS: ATTEND Internal Medicine Hematology & Oncology
DX: Z23 Encounter for immunization (principal); C82.03 Follicular lymphoma grade I, intra-abdominal lymph nodes; I26.99 Other pulmonary embolism without acute cor pulmonale; I82.4Z9 Acute embolism and thrombosis of unspecified deep veins of unspecified distal lower extremity; D68.51 Activated protein C resistance

== ENCOUNTER → 2022-11-28 | Outpatient (CLI) | payer BC ==
[2022-11-28 15:05] LABS: BASO # 0.1 10*3/uL (0.0-0.1); BASO % 0.8 % (0.0-1.0); EOS # 0.3 10*3/uL (0.0-0.4); EOS % 3.7 % (1.0-4.0); HEMATOCRIT 44.5 % (42.0-52.0); LYMPH # 1.1 10*3/uL (1.3-4.4); MEAN CELL VOLUME 99.6 fl (80.0-94.0); MEAN CORPUSCULAR HGB 35.1 pg (27.0-31.0); MEAN CORPUSCULAR HGB CONC 35.3 g/dl (33.0-37.0); MEAN PLATELET VOLUME 10.2 fl (9.6-12.3); MONO # 0.6 10*3/uL (0.1-1.0); MONO % 7.8 % (3.0-9.0); NEUT # 5.7 10*3/uL (2.3-7.9); NEUT % 73.3 % (47.0-73.0); PLATELET COUNT AUTOMATED 171 10*3/uL (130-400); RED BLOOD COUNT 4.47 10*6/uL (4.50-5.90); RED CELL DISTRI WIDTH 12.7 % (0-14.5); WHITE BLOOD COUNT 7.8 10*3/uL (4.8-10.8)
[2022-11-28 15:17] LABS: ACT PARTIAL THROMBO TIME 30.4 SECONDS (20.0-32.1)
[2022-11-28 15:22] LABS: BUN 12 mg/dl (9-23); CHLORIDE 103 mmol/L (98-107); POTASSIUM 4.3 mmol/L (3.4-5.1)
== END | disposition home or self-care (01) ==
LOC: CARD 14:34
PROVIDERS: ATTEND Surgery Vascular Surgery
DX: Z01.818 Encounter for other preprocedural examination (principal); I45.10 Unspecified right bundle-branch block; I73.9 Peripheral vascular disease, unspecified; R79.1 Abnormal coagulation profile; R91.8 Other nonspecific abnormal finding of lung field

== ENCOUNTER → 2023-02-05 | Outpatient (CLI) | payer BC | END | disposition home or self-care (01) | LOC: LAB 15:45 → CT 16:00 | PROVIDERS: ATTEND Surgery Vascular Surgery | DX: Z01.818 Encounter for other preprocedural examination (principal); I77.89 Other specified disorders of arteries and arterioles; K57.30 Diverticulosis of large intestine without perforation or abscess without bleeding; K76.89 Other specified diseases of liver; Z95.828 Presence of other vascular implants and grafts; I70.201 Unspecified atherosclerosis of native arteries of extremities, right leg ==

== ENCOUNTER → 2023-02-26 | Outpatient (CLI) | payer BC | END | disposition home or self-care (01) | LOC: CARD 01:49 | PROVIDERS: ATTEND Internal Medicine Cardiovascular Disease | DX: I34.81 Nonrheumatic mitral (valve) annulus calcification (principal); R94.31 Abnormal electrocardiogram [ECG] [EKG] ==

== ENCOUNTER → 2023-05-13 | Outpatient (CLI) | payer BC ==
[2023-05-13 10:25] LABS: BASO % 0.5 % (0.0-1.0); EOS # 0.2 10*3/uL (0.0-0.4); HEMATOCRIT 48.6 % (42.0-52.0); LYMPH # 0.8 10*3/uL (1.3-4.4); LYMPH % 10.5 % (27.0-41.0); MEAN CELL VOLUME 101.3 fl (80.0-94.0); MEAN CORPUSCULAR HGB 33.8 pg (27.0-31.0); MEAN CORPUSCULAR HGB CONC 33.3 g/dl (33.0-37.0); MONO # 0.6 10*3/uL (0.1-1.0); MONO % 7.9 % (3.0-9.0); NEUT # 5.9 10*3/uL (2.3-7.9); NEUT % 78.8 % (47.0-73.0); PLATELET COUNT AUTOMATED 128 10*3/uL (130-400); RED CELL DISTRI WIDTH 13.2 % (0-14.5); WHITE BLOOD COUNT 7.5 10*3/uL (4.8-10.8)
[2023-05-13 10:45] LABS: ALKALINE PHOSPHATASE 79 U/L (46-116); BUN 11 mg/dl (9-23); CHLORIDE 107 mmol/L (98-107); LDH 167 U/L (120-246); POTASSIUM 4.2 mmol/L (3.4-5.1); SGPT/ALT 22 U/L (5-49); TOTAL PROTEIN 6.3 gm/dL (6.0-8.0)
== END | disposition home or self-care (01) ==
LOC: LAB 09:49
PROVIDERS: ATTEND Internal Medicine Hematology & Oncology
DX: C82.03 Follicular lymphoma grade I, intra-abdominal lymph nodes (principal); Z23 Encounter for immunization; I26.99 Other pulmonary embolism without acute cor pulmonale; I82.4Z9 Acute embolism and thrombosis of unspecified deep veins of unspecified distal lower extremity; D68.51 Activated protein C resistance

== ENCOUNTER → 2023-07-28 | Outpatient (CLI) | payer BC ==
[2023-07-28 12:30] LABS: BASO % 0.6 % (0.0-1.0); EOS # 0.2 10*3/uL (0.0-0.4); EOS % 2.3 % (1.0-4.0); LYMPH # 0.8 10*3/uL (1.3-4.4); LYMPH % 11.9 % (27.0-41.0); MEAN CELL VOLUME 99.8 fl (80.0-94.0); MEAN CORPUSCULAR HGB 33.7 pg (27.0-31.0); MEAN CORPUSCULAR HGB CONC 33.8 g/dl (33.0-37.0); MEAN PLATELET VOLUME 10.1 fl (9.6-12.3); MONO # 0.5 10*3/uL (0.1-1.0); MONO % 7.9 % (3.0-9.0); NEUT % 76.7 % (47.0-73.0); PLATELET COUNT AUTOMATED 154 10*3/uL (130-400); RED BLOOD COUNT 5.01 10*6/uL (4.50-5.90); RED CELL DISTRI WIDTH 13.2 % (0-14.5); WHITE BLOOD COUNT 6.5 10*3/uL (4.8-10.8)
[2023-07-28 12:54] LABS: ACT PARTIAL THROMBO TIME 37.3 SECONDS (20.0-32.1)
[2023-07-28 13:01] LABS: BUN 8 mg/dl (9-23); CHLORIDE 103 mmol/L (98-107); POTASSIUM 4.8 mmol/L (3.4-5.1)
== END | disposition home or self-care (01) ==
LOC: LAB 12:06
PROVIDERS: ATTEND Surgery Vascular Surgery
DX: Z01.818 Encounter for other preprocedural examination (principal); I73.9 Peripheral vascular disease, unspecified; R79.1 Abnormal coagulation profile; I45.10 Unspecified right bundle-branch block; J98.4 Other disorders of lung

== ENCOUNTER → 2023-11-03 | Outpatient (CLI) | payer BC ==
[2023-11-03 15:31] LABS: BASO # 0.1 10*3/uL (0.0-0.1); EOS # 0.2 10*3/uL (0.0-0.4); EOS % 3.9 % (1.0-4.0); HEMATOCRIT 42.6 % (42.0-52.0); LYMPH # 0.6 10*3/uL (1.3-4.4); LYMPH % 9.7 % (27.0-41.0); MEAN CELL VOLUME 103.1 fl (80.0-94.0); MEAN CORPUSCULAR HGB 35.4 pg (27.0-31.0); MEAN CORPUSCULAR HGB CONC 34.3 g/dl (33.0-37.0); MEAN PLATELET VOLUME 9.8 fl (9.6-12.3); MONO # 0.6 10*3/uL (0.1-1.0); MONO % 9.4 % (3.0-9.0); NEUT # 4.7 10*3/uL (2.3-7.9); NEUT % 75.5 % (47.0-73.0); PLATELET COUNT AUTOMATED 147 10*3/uL (130-400); RED BLOOD COUNT 4.13 10*6/uL (4.50-5.90); RED CELL DISTRI WIDTH 12.9 % (0-14.5); WHITE BLOOD COUNT 6.2 10*3/uL (4.8-10.8)
[2023-11-03 15:53] LABS: ALKALINE PHOSPHATASE 87 U/L (46-116); BUN 16 mg/dl (9-23); CHLORIDE 105 mmol/L (98-107); LDH 213 U/L (120-246); POTASSIUM 5.3 mmol/L (3.4-5.1); SGPT/ALT 37 U/L (5-49); TOTAL PROTEIN 6.8 gm/dL (6.0-8.0)
== END ==
LOC: LAB 15:15
PROVIDERS: ATTEND Internal Medicine Hematology & Oncology
DX: Z23 Encounter for immunization (principal); C82.03 Follicular lymphoma grade I, intra-abdominal lymph nodes; I26.99 Other pulmonary embolism without acute cor pulmonale; I82.4Z9 Acute embolism and thrombosis of unspecified deep veins of unspecified distal lower extremity; D68.51 Activated protein C resistance

== ENCOUNTER → 2023-12-08 | Outpatient (CLI) | payer BC | END | disposition home or self-care (01) | LOC: RESCLI 00:27 | PROVIDERS: ATTEND Internal Medicine | DX: E78.5 Hyperlipidemia, unspecified (principal); I48.91 Unspecified atrial fibrillation; Z79.82 Long term (current) use of aspirin; Z79.01 Long term (current) use of anticoagulants; Z98.890 Other specified postprocedural states; Z79.899 Other long term (current) drug therapy ==

== ENCOUNTER → 2024-05-17 | Outpatient (CLI) | payer MEDICARE ==
[2024-05-17 08:54] LABS: BASO % 0.8 % (0.0-1.0); EOS # 0.3 10*3/uL (0.0-0.4); EOS % 6.2 % (1.0-4.0); HEMATOCRIT 45.9 % (42.0-52.0); MEAN CELL VOLUME 99.6 fl (80.0-94.0); MEAN CORPUSCULAR HGB 33.8 pg (27.0-31.0); MEAN PLATELET VOLUME 10.3 fl (9.6-12.3); MONO # 0.4 10*3/uL (0.1-1.0); MONO % 8.5 % (3.0-9.0); NEUT # 3.7 10*3/uL (2.3-7.9); NEUT % 71.4 % (47.0-73.0); PLATELET COUNT AUTOMATED 141 10*3/uL (130-400); RED BLOOD COUNT 4.61 10*6/uL (4.50-5.90); RED CELL DISTRI WIDTH 12.5 % (0-14.5); WHITE BLOOD COUNT 5.2 10*3/uL (4.8-10.8)
[2024-05-17 09:22] LABS: ALKALINE PHOSPHATASE 81 U/L (46-116); BUN 13 mg/dl (9-23); CHLORIDE 106 mmol/L (98-107); LDH 167 U/L (120-246); POTASSIUM 5.1 mmol/L (3.4-5.1); SGPT/ALT 23 U/L (5-49); TOTAL PROTEIN 6.9 gm/dL (6.0-8.0)
== END | disposition home or self-care (01) ==
LOC: LAB 08:38
PROVIDERS: ATTEND Internal Medicine Hematology & Oncology
DX: Z23 Encounter for immunization (principal); C82.03 Follicular lymphoma grade I, intra-abdominal lymph nodes; I26.99 Other pulmonary embolism without acute cor pulmonale; I82.4Z9 Acute embolism and thrombosis of unspecified deep veins of unspecified distal lower extremity; D68.51 Activated protein C resistance

== ENCOUNTER → 2024-10-13 | Outpatient (CLI) | payer MEDICARE ==
[2024-10-13 10:06] LABS: BASO % 0.4 % (0.0-1.0); EOS # 0.3 10*3/uL (0.0-0.4); EOS % 3.9 % (1.0-4.0); HEMATOCRIT 43.8 % (42.0-52.0); MEAN CELL VOLUME 96.5 fl (80.0-94.0); MEAN CORPUSCULAR HGB 33.7 pg (27.0-31.0); MEAN CORPUSCULAR HGB CONC 34.9 g/dl (33.0-37.0); MEAN PLATELET VOLUME 10.3 fl (9.6-12.3); MONO # 0.6 10*3/uL (0.1-1.0); MONO % 6.9 % (3.0-9.0); NEUT # 6.4 10*3/uL (2.3-7.9); NEUT % 80.1 % (47.0-73.0); PLATELET COUNT AUTOMATED 156 10*3/uL (130-400); RED BLOOD COUNT 4.54 10*6/uL (4.50-5.90); RED CELL DISTRI WIDTH 12.3 % (0-14.5)
[2024-10-13 11:52] LABS: ALKALINE PHOSPHATASE 75 U/L (46-116); BUN 8 mg/dl (9-23); CHLORIDE 106 mmol/L (98-107); CHOLESTEROL 153 mg/dL (<200); LDL CHOLESTEROL 61 mg/dL (9-159); POTASSIUM 3.8 mmol/L (3.4-5.1); SGPT/ALT 20 U/L (5-49); TOTAL PROTEIN 6.6 gm/dL (6.0-8.0); TRIGLYCERIDES 143 mg/dl (<150)
[2024-10-13 12:16] LABS: FREE T4 1.42 ng/dl (0.89-1.76)
== END | disposition home or self-care (01) ==
LOC: LAB 09:38
PROVIDERS: ATTEND Nurse Practitioner Family
DX: M16.12 Unilateral primary osteoarthritis, left hip (principal); E78.5 Hyperlipidemia, unspecified; I48.91 Unspecified atrial fibrillation; Z12.5 Encounter for screening for malignant neoplasm of prostate; Z13.29 Encounter for screening for other suspected endocrine disorder; M25.552 Pain in left hip; Z76.89 Persons encountering health services in other specified circumstances; Z87.891 Personal history of nicotine dependence

== ENCOUNTER → 2024-11-08 | Outpatient (CLI) | payer MEDICARE ==
[2024-11-08 17:08] LABS: BASO # 0.0 10*3/uL (0.0-0.1); BASO % 0.5 % (0.0-1.0); EOS # 0.2 10*3/uL (0.0-0.4); EOS % 3.8 % (1.0-4.0); MEAN CELL VOLUME 99.3 fl (80.0-94.0); MEAN CORPUSCULAR HGB 33.8 pg (27.0-31.0); MEAN PLATELET VOLUME 11.2 fl (9.6-12.3); MONO # 0.5 10*3/uL (0.1-1.0); MONO % 8.2 % (3.0-9.0); NEUT # 4.5 10*3/uL (2.3-7.9); NEUT % 76.3 % (47.0-73.0); NUCLEATED RED BLOOD CELL 0.0 % (0.0-0.0); NUCLEATED RED BLOOD CELL 0.0 10*3/uL (0.0-0.0); PLATELET COUNT AUTOMATED 189 10*3/uL (130-400); RED CELL DISTRI WIDTH 12.8 % (0-14.5)
[2024-11-08 17:26] LABS: BUN 13 mg/dl (9-23); LDH 212 U/L (120-246); SGPT/ALT 26 U/L (5-49)
== END | disposition home or self-care (01) ==
LOC: RHCWE 11:48
PROVIDERS: ATTEND Nurse Practitioner Family
DX: E78.5 Hyperlipidemia, unspecified (principal); I48.91 Unspecified atrial fibrillation; R79.89 Other specified abnormal findings of blood chemistry; M25.552 Pain in left hip; F32.A Depression, unspecified; N52.9 Male erectile dysfunction, unspecified; C82.03 Follicular lymphoma grade I, intra-abdominal lymph nodes; Z23 Encounter for immunization; I26.99 Other pulmonary embolism without acute cor pulmonale; D68.51 Activated protein C resistance; Z00.00 Encounter for general adult medical examination without abnormal findings; Z76.89 Persons encountering health services in other specified circumstances

== ENCOUNTER → 2025-03-24 | Outpatient (CLI) | payer MEDICARE | END | disposition home or self-care (01) | LOC: MRI 09:36 | PROVIDERS: ATTEND Nurse Practitioner Family | DX: M48.061 Spinal stenosis, lumbar region without neurogenic claudication (principal); M54.42 Lumbago with sciatica, left side; R29.898 Other symptoms and signs involving the musculoskeletal system; R26.2 Difficulty in walking, not elsewhere classified ==

== ENCOUNTER → 2025-04-05 | Outpatient (CLI) | payer MEDICARE | END | disposition home or self-care (01) | LOC: CT 02:29 | PROVIDERS: ATTEND Nurse Practitioner Family | DX: Z12.2 Encounter for screening for malignant neoplasm of respiratory organs (principal); R91.1 Solitary pulmonary nodule; Z87.891 Personal history of nicotine dependence; I25.10 Atherosclerotic heart disease of native coronary artery without angina pectoris ==

== ENCOUNTER → 2025-04-10 | Outpatient (CLI) | payer MEDICARE ==
[2025-04-10 11:52] LABS: BASO # 0.1 10*3/uL (0.0-0.1); BASO % 0.9 % (0.0-1.0); EOS # 0.3 10*3/uL (0.0-0.4); EOS % 5.0 % (1.0-4.0); MEAN CELL VOLUME 100.5 fl (80.0-94.0); MEAN CORPUSCULAR HGB 34.9 pg (27.0-31.0); MEAN PLATELET VOLUME 10.0 fl (9.6-12.3); MONO # 0.6 10*3/uL (0.1-1.0); MONO % 10.8 % (3.0-9.0); NEUT # 4.0 10*3/uL (2.3-7.9); NEUT % 71.9 % (47.0-73.0); NUCLEATED RED BLOOD CELL 0.0 % (0.0-0.0); NUCLEATED RED BLOOD CELL 0.0 10*3/uL (0.0-0.0); PLATELET COUNT AUTOMATED 149 10*3/uL (130-400); RED CELL DISTRI WIDTH 12.5 % (0-14.5)
[2025-04-10 12:02] LABS: ACT PARTIAL THROMBO TIME 33.8 SECONDS (20.0-32.1)
[2025-04-10 12:16] LABS: BUN 10 mg/dl (9-23)
== END | disposition home or self-care (01) ==
LOC: LAB 11:06
PROVIDERS: Surgery Vascular Surgery; ATTEND Nurse Practitioner Family
DX: Z01.818 Encounter for other preprocedural examination (principal); J98.11 Atelectasis; M85.88 Other specified disorders of bone density and structure, other site; M47.814 Spondylosis without myelopathy or radiculopathy, thoracic region; I45.10 Unspecified right bundle-branch block

== ENCOUNTER → 2025-04-25 | Outpatient (CLI) | payer MEDICARE ==
[2025-04-25 11:24] LABS: BASO # 0.0 10*3/uL (0.0-0.1); BASO % 0.6 % (0.0-1.0); EOS # 0.3 10*3/uL (0.0-0.4); EOS % 3.7 % (1.0-4.0); MEAN CELL VOLUME 99.1 fl (80.0-94.0); MEAN CORPUSCULAR HGB 34.2 pg (27.0-31.0); MEAN PLATELET VOLUME 9.9 fl (9.6-12.3); MONO # 0.5 10*3/uL (0.1-1.0); MONO % 7.8 % (3.0-9.0); NEUT # 5.2 10*3/uL (2.3-7.9); NEUT % 77.5 % (47.0-73.0); NUCLEATED RED BLOOD CELL 0.0 % (0.0-0.0); NUCLEATED RED BLOOD CELL 0.0 10*3/uL (0.0-0.0); PLATELET COUNT AUTOMATED 184 10*3/uL (130-400); RED CELL DISTRI WIDTH 12.4 % (0-14.5)
[2025-04-25 11:46] LABS: BUN 11 mg/dl (9-23); LDH 174 U/L (120-246); SGPT/ALT 26 U/L (5-49)
== END | disposition home or self-care (01) ==
LOC: LAB 11:07
PROVIDERS: ATTEND Internal Medicine Hematology & Oncology
DX: C82.03 Follicular lymphoma grade I, intra-abdominal lymph nodes (principal); D68.51 Activated protein C resistance; I82.4Z9 Acute embolism and thrombosis of unspecified deep veins of unspecified distal lower extremity; I26.99 Other pulmonary embolism without acute cor pulmonale; Z23 Encounter for immunization

== ENCOUNTER → 2025-05-02 | Outpatient (CLI) | payer MEDICARE | LOC: CARD 11:52 | PROVIDERS: ATTEND Physician Assistant Medical | DX: Z01.810 Encounter for preprocedural cardiovascular examination (principal); I45.10 Unspecified right bundle-branch block; M51.26 Other intervertebral disc displacement, lumbar region ==